=== PATIENT | female | born 2000 | race Two or more races ===

== ENCOUNTER → 2024-08-29 | Outpatient (CLI) | payer BC, SELFPAY ==
[2024-08-29 16:04] LABS: Basophils % (Auto) 0 % (0-2.5); Eosinophils # (Auto) 0.2 Thou/mm3 (0.0-0.5); Eosinophils % (Auto) 2 % (0-10); Hematocrit 40.2 % (36.0-46.0); Hemoglobin 13.2 g/dL (12.0-16.0); Immature Granulocytes % (Auto) 0 % (0-0); Immature Granulocytes Auto 0.03 Thou/mm3 (0.00-0.00); Lymphocytes % (Auto) 21 % (10-50); Mean Corpuscular HGB Conc 32.8 g/dl (31.0-37.0); Mean Corpuscular Hemoglobin 26.9 pg (25.0-35.0); Mean Corpuscular Volume 82 fL (80-100); Monocytes # (Auto) 0.5 Thou/mm3 (0.0-0.8); Monocytes % (Auto) 5 % (0-12); Neutrophils # (Auto) 6.7 Thou/mm3 (1.8-7.7); Neutrophils % (Auto) 71 % (37-80); Nucleated Red Blood Cell % 0 /100 WBC (0); Platelet Count 376 Thou/mm3 (140-440); RDW Standard Deviation 41.5 fL (36.4-46.3); Red Blood Count 4.91 Miln/mm3 (4.00-5.20); White Blood Count 9.4 Thou/mm3 (3.6-11.0)
[2024-08-29 16:18] LABS: Glucose Estimated Average 100 mg/dL (80-131); Hemoglobin A1C 5.1 % Hgb (4.8-6.0)
[2024-08-29 16:42] LABS: Alanine Aminotransferase 11 U/L (10-49); Albumin, Serum 4.5 gm/dL (3.5-5.0); Albumin/Globulin Ratio 1.4 (1.2-2.2); Alkaline Phosphatase 82 U/L (46-116); Anion Gap 9 (7-16); Aspartate Amino Transferase 13 U/L (0-34); BUN/Creatinine Ratio 8 Ratio (12-20); Bilirubin,Total 0.6 mg/dL (0.3-1.2); Blood Urea Nitrogen 8 mg/dL (9-23); Calcium 9.6 mg/dL (8.3-10.6); Calcium (Corrected) 9.6 mg/dL (8.5-10.1); Carbon Dioxide 24.8 mMol/L (20.0-31.0); Cardiac Risk Estimate 4.1 RATIO (3.7-5.6); Chloride 106 mMol/L (98-107); Cholesterol 157 mg/dL (132-200); Free T4 (Free Thyroxine) 1.02 ng/dL (0.89-1.76); Globulin 3.3 gm/dL (2.3-3.5); Glucose 89 mg/dL (74-106); HDL Cholesterol 38 mg/dL (40-60); LDL Cholesterol,Calculated 92 mg/dL (0-130); Osmolality,Calculated 276 (275-295); Potassium 5.1 mMol/L (3.4-5.1); Sodium 140 mMol/L (136-145); Thyroid Stimulating Hormone 3.09 uIU/mL (0.55-4.78); Total Protein 7.8 gm/dL (5.7-8.2); Triglycerides 134 mg/dL (30-150); eGFR > 60 See Note
[2024-08-29 16:45] LABS: Sed Rate (ESR) 10 mm/hr (0-20)
[2024-09-08 06:54] LABS: hs-CRP* 10.1 mg/L
== END | disposition home or self-care (01) ==
LOC: COPL 15:40
PROVIDERS: PCP Nurse Practitioner Family; Referring Provider Internal Medicine Cardiovascular Disease; Visit Provider Internal Medicine Cardiovascular Disease
DX: R07.9 Chest pain, unspecified (principal); R53.83 Other fatigue; L70.0 Acne vulgaris
CPT/HCPCS: 36415; 80053; 80061; 83036; 84439; 84443; 85025; 85652; 86141